=== PATIENT | female | born 1965 | race Caucasian/White ===

== ENCOUNTER 2024-04-12 16:48 | Inpatient (IN) | payer MEDICAID, OTHER ==
[~2024-04-12] VITALS: Ht 149.9 cm; Wt 65.8 kg
[2024-04-12 17:32] VITALS: O2SAT 96
[2024-04-12] MEDS: SODIUM CHLORIDE 0.9% (SEPSIS BOLUS) IV ONE (17:45)
[2024-04-12] MEDS ORDERED: PIPERACILLIN/TAZO 3.375G/50ML 50 ML IV ONE (17:45)
[2024-04-12] MEDS: VANCOMYCIN 1G PREMIX 200 ML IV ONE (17:45)
[2024-04-12 17:46] LABS: HEMATOCRIT. 36.2 % (36.0-48.0); MEAN CORPUSCULAR HEMOGLOBIN 28.9 pg (28.0-32.0); MEAN CORPUSCULAR HGB CONC 33.1 g/dL (31.0-37.0); MEAN CORPUSCULAR VOLUME 87.4 fL (81.0-99.0); MEAN PLATELET VOLUME 9.5 fl (7.4-10.4); PLATELET 357 x1000/uL (130-400); RED BLOOD CELL COUNT 4.14 mill/uL (4.2-5.4); RED CELL DISTRIBUTION WIDTH 13.3 % (11.6-14.6); WHITE BLOOD COUNT 17.2 x1000/uL (4.5-11.0)
[2024-04-12 17:48] LABS: DIFFERENTIAL COMMENT 1
[2024-04-12 17:55] LABS: CHLORIDE 94 mEq/L (98-107); POTASSIUM 4.3 mEq/L (3.5-5.1); SODIUM 126 mEq/L (136-145)
[2024-04-12 17:56] LABS: CALCIUM 9.3 mg/dL (8.7-10.4); CARBON DIOXIDE 19 mEq/L (21-32)
[2024-04-12 17:57] LABS: INR 1.1; PROTHROMBIN TIME 12.4 sec (9.6-11.0)
[2024-04-12 18:01] LABS: CREATININE 0.9 mg/dL (0.6-1.0); TROPONIN I HIGH SENSITIVITY 16 ng/L (3.0-34); UREA NITROGEN BLOOD 19 mg/dL (9-23)
[2024-04-12 18:09] LABS: PLATELET ESTIMATE NORMAL
[2024-04-12 18:17] LABS: GLUCOSE 569 mg/dL (70-105)
[2024-04-12 19:19] LABS: CLARITY URINE CLEAR (CLEAR); COLOR URINE YELLOW (YELLOW); GLUCOSE URINE 3+ (NEGATIVE); KETONES URINE 2+ (NEGATIVE); LEUKOCYTE ESTERASE URINE NEGATIVE (NEGATIVE); NITRITE URINE NEGATIVE (NEGATIVE); OCCULT BLOOD URINE NEGATIVE (NEGATIVE); PH URINE 5.5 (4.5-8.0); PROTEIN URINE 1+ (NEGATIVE); SPECIFIC GRAVITY URINE 1.033 (1.005-1.030)
[2024-04-12 19:30] LABS: ALANINE AMINOTRANSFERASE 24 IU/L (10-49); ALBUMIN 3.9 g/dL (3.2-4.8); ASPARTATE AMINOTRANSFERASE 60 IU/L (<34); BILIRUBIN TOTAL 0.3 mg/dL (0.1-1.0); PROTEIN TOTAL 7.6 g/dL (6.0-8.3)
[2024-04-12 19:41] LABS: BACTERIA URINE NONE SEEN; RBC URINE NONE SEEN /hpf (0-2); SQUAMOUS EPITHELIAL CELL URINE FEW /lpf (RARE/1+); WBC URINE 0-2 /hpf (0-2)
[2024-04-12 20:06] LABS: BILIRUBIN DIRECT < 0.1 mg/dL (<=3.0)
[2024-04-12] MEDS: PIPERACILLIN/TAZO 3.375G/100ML 100 ML IV NR (21:29)
[2024-04-13 04:00] VITALS: BP 125/69; PULSE 92; RESP 20; TEMP 36.3068
[2024-04-13] MEDS ORDERED: ACETAMINOPHEN 325MG TABLET PO PRN (04:30)
[2024-04-13] MEDS ORDERED: DEXTROSE 50% WATER 50ML SYRINGE IV PRN (04:30)
[2024-04-13] MEDS: CEFTRIAXONE 1GM/50ML 50 ML IV SCH (06:24)
[2024-04-13] MEDS: BLOOD SUGAR DIAGNOSTIC STRIP TEST SCH (06:25)
[2024-04-13] MEDS: INSULIN GLARGINE 100 UNITS/ML SUBCUT SCH ×2 (09:53→22:28)
[2024-04-13] MEDS: INSULIN LISPRO 100 UNITS/ML SUBCUT SCH (09:54)
[2024-04-13] MEDS ORDERED: AZITHROMYCIN 500MG/250ML 250 ML IV SCH (10:00)
[2024-04-13] MEDS ORDERED: IPRATROPIUM/ALBUTEROL 0.5-3(2.5)MG/3ML NEB HHN PRN (10:15)
[2024-04-13 11:35] LABS: HEMATOCRIT. 35.8 % (36.0-48.0); HEMOGLOBIN. 11.9 g/dL (12.0-16.0); MEAN CORPUSCULAR HEMOGLOBIN 29.3 pg (28.0-32.0); MEAN CORPUSCULAR HGB CONC 33.3 g/dL (31.0-37.0); MEAN PLATELET VOLUME 9.6 fl (7.4-10.4); PLATELET 366 x1000/uL (130-400); RED BLOOD CELL COUNT 4.07 mill/uL (4.2-5.4); RED CELL DISTRIBUTION WIDTH 13.4 % (11.6-14.6); WHITE BLOOD COUNT 13.9 x1000/uL (4.5-11.0)
[2024-04-13 11:47] LABS: CHLORIDE 105 mEq/L (98-107)
[2024-04-13 11:48] LABS: CARBON DIOXIDE 21 mEq/L (21-32); POTASSIUM 3.9 mEq/L (3.5-5.1); SODIUM 138 mEq/L (136-145)
[2024-04-13 11:49] LABS: CALCIUM 9.3 mg/dL (8.7-10.4)
[2024-04-13 11:53] LABS: CREATININE 0.7 mg/dL (0.6-1.0)
[2024-04-13 11:54] LABS: LDL CHOLESTEROL 102 mg/dL (5-100); TRIGLYCERIDE 163 mg/dL (0-150); UREA NITROGEN BLOOD 23 mg/dL (9-23)
[2024-04-13 11:56] LABS: CHOLESTEROL 157 mg/dL (<200); HDL CHOLESTEROL 22 mg/dL (>65)
[2024-04-13 11:59] LABS: DIFFERENTIAL COMMENT 1
[2024-04-13 12:17] LABS: GLUCOSE 415 mg/dL (70-105)
[2024-04-13] MEDS: LOSARTAN 50 MG TABLET PO SCH (13:50)
[2024-04-13] MEDS: AZITHROMYCIN 500MG/250ML 250 ML IV SCH (13:50)
[2024-04-13] MEDS: PREDNISONE 20MG TABLET PO SCH (14:05)
[2024-04-13] MEDS: SODIUM CHLORIDE 0.9% 1,000 ML IV SCH (15:16)
[2024-04-13 16:00] VITALS: BP 124/77; PULSE 90; RESP 18; TEMP 36.3918; O2SAT 97
[2024-04-13 17:52] LABS: PLATELET ESTIMATE NORMAL
[2024-04-13 20:00] VITALS: BP 136/78; PULSE 114; RESP 16; TEMP 36.6696; O2SAT 93
[2024-04-13] MEDS: INSULIN LISPRO 100 UNITS/ML SUBCUT NR (22:30)
[2024-04-14] VITALS: BP 136/80; PULSE 97; RESP 18; TEMP 36.6696; O2SAT 100
[2024-04-14 04:00] VITALS: BP 138/73; PULSE 87; RESP 18; TEMP 36.44736; O2SAT 97
[2024-04-14 08:00] VITALS: BP 144/76; PULSE 91; RESP 18; TEMP 36.6696; O2SAT 96
[2024-04-14] MEDS ORDERED: LANTUSUD SUBCUT (11:43)
[2024-04-14] MEDS ORDERED: LEVO750T68 MT (11:43)
[2024-04-14 12:00] VITALS: BP 134/77; PULSE 105; RESP 20; TEMP 36.33624; O2SAT 98
== END 2024-04-14 14:03 | disposition home or self-care (01) | DRG 720 ==
LOC: ER 16:48 → 5WST 20:01 → EDBEDREQ 22:46 → EDBEDREQSVC 22:46 → EDBEDREQTM 22:46
PROVIDERS: ADMIT Internal Medicine; ATTEND Internal Medicine
DX: A41.9 Sepsis, unspecified organism (principal); J18.9 Pneumonia, unspecified organism; E11.65 Type 2 diabetes mellitus with hyperglycemia; Z20.822 Contact with and (suspected) exposure to COVID-19; E78.00 Pure hypercholesterolemia, unspecified; Z79.899 Other long term (current) drug therapy
CPT/HCPCS: 36415; 71045; 80048; 80061; 80076; 81003; 82962; 83036; 83605; 83880; 84145; 84484; 85025; 87426; 87804; 93005; 99291; A4606; J0456; J0696; J1815; J2543; J3370; J7030; J7512